=== PATIENT | male | born 1945 | race Two or more races ===

== ENCOUNTER 2020-05-28 09:25 | Day surgery (SDC) | payer MEDICARE ==
[~2020-05-28] VITALS: Ht 175.3 cm; Wt 124.3 kg
[2020-05-28] VITALS (13 sets, daily range): BP systolic 122–162; BP diastolic 81–103
[~2020-05-28 09:25] MED LIST: CHOL2000 PO; CYAN25003 PO; FLAX100032 PO; NORCO10T PO; OMEG1CAP54 PO; VITA400T10 PO; WALKERFR; [UNRECOGNIZED DRUG - SUPPLY]
[2020-05-28] MEDS ORDERED: atropine 0.1mg/ml 10ml syringe IV ONE (09:45)
[2020-05-28] MEDS ORDERED: MIDAZolam 1mg/ml 10ml vial IV ONE (09:45)
[2020-05-28] MEDS ORDERED: normal saline 1000ml 1,000 ML IV SCH (09:45)
[2020-05-28] MEDS ORDERED: fentaNYL/PF 50MCG/1 ML 2ML syringe IV ONE (09:45)
[2020-05-28] MEDS ORDERED: RIVA20TA PO (09:54)
[2020-05-28] MEDS ORDERED: FLEC100T35 PO (09:54)
[2020-05-28] MEDS ORDERED: FINA5TAB11 PO (09:55)
[2020-05-28] MEDS ORDERED: GLYC2TAB21 PO (09:58)
[2020-05-28] MEDS ORDERED: TEST200V10 IM (09:58)
[2020-05-28] MEDS ORDERED: TORS10TA17 PO (09:58)
[2020-05-28] MEDS ORDERED: SILO8CAP2 PO (09:58)
[2020-05-28] MEDS ORDERED: FINA5TAB3 PO (09:58)
[2020-05-28] MEDS ORDERED: IBUP-1985 PO (09:58)
[2020-05-28 10:29] LABS: BASOPHILS % (AUTO) 0.4 % (0-1); EOSINOPHILS % (AUTO) 0.2 % (0-6); LYMPHOCYTES # (AUTO) 0.8 X10'3 (1.1-4.8); LYMPHOCYTES % (AUTO) 10.3 % (21-51); MEAN CORPUSCULAR HEMOGLOBIN 33.4 PG (27.0-31.0); MEAN CORPUSCULAR HGB CONC 34.1 g/dL (33.0-36.5); MEAN PLATELET VOLUME 8.1 FL (7.4-10.4); MONOCYTES # (AUTO) 0.7 X10'3 (0-0.9); MONOCYTES % (AUTO) 9.1 % (2-12); NEUTROPHILS # (AUTO) 6.2 X10'3 (1.8-7.7); PLATELET COUNT 137 X10'3 (140-440); RED BLOOD COUNT 4.49 X10'6 (4.70-6.10); RED CELL DISTRIBUTION WIDTH 14.4 % (11.5-14.5); WHITE BLOOD COUNT 7.8 X10'3 (4.5-11.0)
[2020-05-28 10:31] LABS: ALBUMIN 3.4 G/DL (3.4-5.0); ANION GAP 4 (8-16); BLOOD UREA NITROGEN 30 MG/DL (7-18); BUN/CREATININE RATIO 22.6 (5.4-32.0); CALCIUM 8.7 MG/DL (8.5-10.1); CHLORIDE 106 MMOL/L (99-107); CREATININE 1.33 MG/DL (0.60-1.10); GLUCOSE 103 MG/DL (70-104); MAGNESIUM 1.9 MG/DL (1.5-2.4); POTASSIUM 3.8 MMOL/L (3.5-5.1); SODIUM 144 MMOL/L (135-145); TOTAL CARBON DIOXIDE 34.2 MMOL/L (24-32); eGFR 53 ML/MIN
== END 2020-05-28 13:50 | disposition home or self-care (01) ==
LOC: SSTAY O 09:25
PROVIDERS: ATTEND Internal Medicine Cardiovascular Disease
DX: I48.19 Other persistent atrial fibrillation (principal); I10 Essential (primary) hypertension; G47.33 Obstructive sleep apnea (adult) (pediatric); N40.0 Benign prostatic hyperplasia without lower urinary tract symptoms; E53.8 Deficiency of other specified B group vitamins; E66.01 Morbid (severe) obesity due to excess calories; Z68.41 Body mass index [BMI] 40.0-44.9, adult; M51.36 Other intervertebral disc degeneration, lumbar region; Z79.899 Other long term (current) drug therapy; Z96.653 Presence of artificial knee joint, bilateral; Z79.891 Long term (current) use of opiate analgesic; Z98.890 Other specified postprocedural states
CPT/HCPCS: 36415; 80048; 83735; 85025; 85610; 92960; 93005; J2250; J3010; J7030

== ENCOUNTER 2021-09-26 05:42 | Day surgery (SDC) | payer MEDICARE ==
[2021-09-24 16:06] LABS: BASOPHILS % (AUTO) 0.6 % (0-1); EOSINOPHILS # (AUTO) 0.1 X10'3 (0-0.9); EOSINOPHILS % (AUTO) 1.5 % (0-6); LYMPHOCYTES # (AUTO) 2.1 X10'3 (1.1-4.8); LYMPHOCYTES % (AUTO) 32.9 % (21-51); MEAN CORPUSCULAR HEMOGLOBIN 24.3 PG (27.0-31.0); MEAN CORPUSCULAR HGB CONC 33.1 g/dL (33.0-36.5); MEAN CORPUSCULAR VOLUME 73.5 FL (78-98); MEAN PLATELET VOLUME 8.6 FL (7.4-10.4); MONOCYTES # (AUTO) 0.6 X10'3 (0-0.9); MONOCYTES % (AUTO) 9.9 % (2-12); NEUTROPHILS # (AUTO) 3.5 X10'3 (1.8-7.7); NEUTROPHILS % (AUTO) 55.1 % (42-75); PRE OP HEMATOCRIT 37.6 % (42.0-52.0); PRE OP HEMOGLOBIN 12.4 g/dL (14.0-17.9); PRE OP PLATELET COUNT 187 X10'3 (140-440); RED BLOOD COUNT 5.11 X10'6 (4.70-6.10); RED CELL DISTRIBUTION WIDTH 18.4 % (11.5-14.5)
[2021-09-24 16:22] LABS: PRE OP INR 1.3 INR; PRE OP PROTIME 13.1 SECONDS (9.0-12.0)
[2021-09-24 16:34] LABS: ALBUMIN 3.7 G/DL (3.4-5.0); ALKALINE PHOSPHATASE 86 IU/L (46-116); BLOOD UREA NITROGEN 26 MG/DL (7-18); CALCIUM 8.9 MG/DL (8.5-10.1); CHLORIDE 103 MMOL/L (99-107); CREATININE 1.37 MG/DL (0.60-1.10); PRE OP ALT 26 U/L (30-65); PRE OP ANION GAP 10 (8-16); PRE OP AST 22 U/L (10-37); PRE OP BILIRUB, TOTAL 0.8 MG/DL (0.0-1.0); PRE OP GLUCOSE 115 MG/DL (70-104); PRE OP SODIUM 143 MMOL/L (135-145); TOTAL CARBON DIOXIDE 30.4 MMOL/L (24-32); TOTAL PROTEIN 7.3 G/DL (6.4-8.2); eGFR 51 ML/MIN
[2021-09-24 16:36] LABS: PRE OP POTASSIUM 3.3 MMOL/L (3.4-5.1)
[~2021-09-26] VITALS: Ht 177.8 cm; Wt 120.2 kg
[2021-09-26] VITALS (7 sets, daily range): BP systolic 102–149; BP diastolic 66–92
[~2021-09-26 05:42] MED LIST changes: +BISO1TAB99 PO; +BUME2TAB7 PO; +CYAN10007 IM; +DARI7.5T17 PO; +DOCUMENT DATE & TIME OF BETA-BLOCKER PO ONE; +DRON400T6 PO; +GABA-530 PO; +MAGN250T35 PO; +MAGN400T56 PO; +PANT40TA54 PO; +POTASSIUM PO; +RIVA20TA PO; +TEST200V33 IM; -WALKERFR; -[UNRECOGNIZED DRUG - SUPPLY]; +albuterol 2.5 MG/3 ML nebule NEB ONE; +ceFAZolin inj. 3,000 MG in normal saline 100ml IV soln 100 ML IV ONE; +famotidine 20mg tablet PO ONE; +ringers solution, lacted 1,000 ML IV SCH
[2021-09-26] MEDS ORDERED: BUPIVAcaine/PF 2.5mg/ml (0.25%) 10ml vial ONE (06:15)
[2021-09-26] MEDS ORDERED: LIDOcaine 0.5% (5mg/ml) 50ml vial ONE (07:08)
[2021-09-26] MEDS ORDERED: fentaNYL/PF 50MCG/1 ML 2ML syringe ONE (07:10)
[2021-09-26] MEDS ORDERED: MIDAZolam 1mg/ml 10ml vial ONE (07:12)
[2021-09-26] MEDS ORDERED: hydrALAZINE 20mg/ml inj. IV PRN (07:45)
[2021-09-26] MEDS ORDERED: fentaNYL/PF 50MCG/1 ML 2ML syringe IV PRN ×2 (07:45)
[2021-09-26] MEDS ORDERED: ondansetron/PF 4mg/2ml inj IV PRN (07:45)
[2021-09-26] MEDS ORDERED: morphine 4 MG/ML inj SYRINge IV PRN (07:45)
[2021-09-26] MEDS ORDERED: ringers solution, lacted 1,000 ML IV SCH (07:45)
[2021-09-26] MEDS ORDERED: morphine 2 MG/ML inj. syringe IV PRN (07:45)
[2021-09-26] MEDS ORDERED: labetalol 20mg/4ml (5mg/ml) syringe IV PRN (07:45)
--- NOTE | 2021-09-26 07:50 | NUR ---
Received from OR via BED, accompanied by Anesthesiologist and report given by Anesthesiologist. PATIENT WAKING UP, NO S/S OF PAIN, V/S WNL, SCD ON, 20G TO RUE, LEFT WRIST DRESSING CDI W/ SLING. ICE AND ELEVATED RUE.
[2021-09-26] MEDS ORDERED: HYDROcodone/acetaminophen 10/325mg tab PO PRN (08:05)
--- NOTE | 2021-09-26 08:30 | NUR ---
PATIENT A&OX4, DENIES PAIN, V/S WNL, SCD OFF, 20G TO RUE D/C, LEFT WRIST DRESSING CDI W/ SLING. ICE AND ELEVATED RUE. . I HAVE REVIEWED D/C INSTRUCTIONS WITH PATIENT and they have verbalized understanding patient d/c home with all belongings and family gave transport home.
== END 2021-09-26 08:30 | disposition home or self-care (01) ==
LOC: PAS 05:42
PROVIDERS: ATTEND Orthopaedic Surgery
DX: G56.02 Carpal tunnel syndrome, left upper limb (principal); M19.011 Primary osteoarthritis, right shoulder; M19.012 Primary osteoarthritis, left shoulder; I10 Essential (primary) hypertension; E66.9 Obesity, unspecified; Z68.38 Body mass index [BMI] 38.0-38.9, adult; G47.33 Obstructive sleep apnea (adult) (pediatric); I48.91 Unspecified atrial fibrillation; Z20.822 Contact with and (suspected) exposure to COVID-19; Z98.890 Other specified postprocedural states; Z79.82 Long term (current) use of aspirin
CPT/HCPCS: 36415; 64721; 80053; 85025; 85610; 85730; 87635; A6222; C9803; J0690; J2250; J3010; J3490; J7030; J7120; Z7506; Z7512; A4215; A6449; A7000

== ENCOUNTER 2023-11-16 09:29 | Outpatient (CLI) | payer MEDICARE ==
[~2023-11-16 09:29] MED LIST changes: -DOCUMENT DATE & TIME OF BETA-BLOCKER PO ONE; -albuterol 2.5 MG/3 ML nebule NEB ONE; -ceFAZolin inj. 3,000 MG in normal saline 100ml IV soln 100 ML IV ONE; -famotidine 20mg tablet PO ONE; -ringers solution, lacted 1,000 ML IV SCH
== END 2023-11-16 23:59 | disposition home or self-care (01) ==
LOC: RAD 09:29
PROVIDERS: ATTEND Nurse Practitioner Family
DX: I08.8 Other rheumatic multiple valve diseases (principal); R60.0 Localized edema; R06.09 Other forms of dyspnea
CPT/HCPCS: 93306

== ENCOUNTER 2025-04-15 06:19 | Emergency (ER) | payer MEDICARE ==
[~2025-04-15] VITALS: Ht 175.3 cm; Wt 121.2 kg
[2025-04-15 07:02] LABS: MEAN PLATELET VOLUME 8.2 FL (7.4-10.4); RED CELL DISTRIBUTION WIDTH 13.3 % (11.5-14.5)
--- NOTE | 2025-04-15 07:02 | Physician Documentation ---
History of Present Illness General Chief Complaint: Diarrhea Stated Complaint: WEAKNESS Time Seen by MD: 06:50 Primary Medical Doctor: KHAI PULIDO Mode of Arrival: POV History of Present Illness Initial Comments The patient is a 79-year-old male with a history of atrial fibrillation (takes Xarelto), chronic kidney disease, BPH (recently started on tamsulosin) and occasional diarrhea who presents today with more diarrhea over the past day. The diarrhea is non-bloody. It is liquidy and green according to his , who has been cleaning him up. He has not been worked up for this in the past. Medication Reconciliation Allergies: Coded Allergies: No Known Allergies (Unverified , 12/09/13) Scheduled Bisoprolol Fumarate/Hctz (Bisoprolol-Hctz 2.5-6.25 mg Tb), 1 TAB PO DAILY, (Reported) Cholecalciferol (Vitamin D3) (Vitamin D-3), 5,000 UNIT PO DAILY, (Reported) Cyanocobalamin (Vitamin B-12) (Vitamin B-12), 1 TAB PO DAILY, (Reported) Cyanocobalamin (Vitamin B-12) (Cyanocobalamin Injection), 200 MG IM Q2W, (Reported) Darifenacin Hydrobromide (Darifenacin ER), 1 TAB PO DAILY, (Reported) Dronedarone Hydrochloride (Multaq), 1 TAB PO BID, (Reported) Flaxseed Oil (Flaxseed), 1,400 MG PO DAILY, (Reported) Gabapentin (Gabapentin), 1 TAB PO DAILY, (Reported) Magnesium (Magnesium), 1 TAB PO DAILY, (Reported) Magnesium Oxide (Magnesium Oxide), 1 TAB PO DAILY, (Reported) [place]-3 Fatty Acids/Fish Oil (Fish Oil 1,000 Mg Capsule), 1,400 MG PO DAILY, (Reported) Pantoprazole Sodium (Pantoprazole Sodium), 1 TAB PO DAILY, (Reported) Rivaroxaban (Xarelto), 1 TAB PO HS, (Reported) Testosterone Cypionate (TESTOSTERONE CYPIONATE 200mg/ml 10ml vial), 1 ML IM Q2W, (Reported) Vitamin E Mixed (Vitamin E), 400 UNIT PO DAILY, (Reported) [Potassium], 99 MG PO DAILY, (Reported) Scheduled PRN Bumetanide (Bumetanide), 1 TAB PO DAILY PRN for swelling, (Reported) Hydrocodone Bit/Acetaminophen 10/325 MG* ([place] 10/325 MG*), 1 TAB PO Q8H PRN for moderate or severe pain, (Reported) Review of Systems ROS Constitutional: Denies chills, fatigue, fever, weight gain or weight loss. HEENT: Denies hearing loss, sinus pressure or visual changes. Respiratory: Denies cough, shortness of breath or wheezing. Cardiovascular: Denies chest pain, pain while walking (claudication), edema or palpitations. Gastrointestinal: Diarrhea, no nausea or vomiting Genitourinary: Denies painful urination (dysuria), excessive amount of urine (polyuria) or urinary frequency. Metabolic/Endocrine: Denies cold intolerance, heat intolerance, excessive thirst (polydipsia) or excessive hunger (polyphagia). Neurological: Denies dizziness, extremity numbness, extremity weakness, headaches, seizures or tremors. Psychiatric: Denies anxiety or depression. Integumentary: Denies breast discharge, breast lump, hives, mole change(s), rash or skin lesion. Musculoskeletal: Denies back pain, joint pain, joint swelling or neck pain. Hematologic: Denies easily bleeding, easily bruises, lymphedema or issues with blood clots. Immunologic: Denies food allergies or seasonal allergies. Physical Exam Physical Exam Vital Signs: Temperature: 98.0, Source: Oral, Heart Rate: 109, Respiratory Rate: 16, BP: 160/78, Pulse Oximetry: 95, Weight: 121.200 Oxygen Flow Rate: 0 Physical Exam Physical Exam Vitals and nursing note reviewed. Constitutional: General: Patient is awake, alert, oriented x 4 in no acute distress and well appearing. Speech is clear and lucid. Appearance: Normal appearance. Patient is not ill-appearing, toxic-appearing or diaphoretic. HENT: Head: Normocephalic and atraumatic. Mouth/Throat: Mouth: Mucous membranes are moist. Pharynx: Oropharynx is clear. Eyes: General: No scleral icterus. Extraocular Movements: Extraocular movements intact. Pupils: Pupils are equal, round, and reactive to light. Neck: Supple, no Kernig or Brudzinski sign. Cardiovascular: Rate and Rhythm: Normal rate and regular rhythm. Heart sounds: No murmur heard. Pulmonary: Effort: No respiratory distress. Breath sounds: No wheezing, rhonchi or rales. Abdominal: General: There is no distension. Palpations: There is no fluid wave, hepatomegaly or mass. Tenderness: There is no abdominal tenderness. There is no guarding. Musculoskeletal: General: No swelling or deformity. Skin: Coloration: Skin is not jaundiced. Findings: No erythema or rash. Neurological: Mental Status: Patient is alert. Progress Results/Orders Results/Orders Orders - NITHYA DUNCAN MD Occult Bld Stool (04/15/25 06:56) Cult Stool (Enteric Pathogens) (04/15/25 ) C Diff Toxin (04/15/25 06:56) Wrights Stain For Stool Wbcs (04/15/25 ) Completed Orders - NITHYA DUNCAN MD Cbc/Diff (04/15/25 06:27) BMP (04/15/25 06:27) Lipase (04/15/25 06:27) CMP (04/15/25 06:27) Procalcitonin (04/15/25 06:56) LA (04/15/25 06:56) MG (04/15/25 06:50) Ua W/Microscopic, Cult If Ind (04/15/25 07:00) Vital Signs 04/15/25 04/15/25 04/15/25 04/15/25 06:21 06:47 07:34 08:43 Temp 98.0 98.6 Pulse 109 111 113 Resp 16 16 16 16 B/P (MAP) 160/78 179/97 (124) 174/147 (156) Pulse Ox 95 96 97 O2 Flow Rate 0 0 Laboratory Tests Test 04/15/25 06:50 04/15/25 07:00 04/15/25 07:10 White Blood Count 7.5 Red Blood Count 5.25 Hemoglobin 16.4 Hematocrit 48.1 Mean Corpuscular Volume 91.7 Mean Corpuscular Hemoglobin 31.2 H Mean Corpuscular Hemoglobin Concent 34.0 Red Cell Distribution Width 13.3 Platelet Count 127 L Mean Platelet Volume 8.2 Neutrophils (%) (Auto) 81.1 H Lymphocytes (%) (Auto) 9.1 L Monocytes (%) (Auto) 8.6 Eosinophils (%) (Auto) 0.8 Basophils (%) (Auto) 0.4 Neutrophils # (Auto) 6.1 Lymphocytes # (Auto) 0.7 L Monocytes # (Auto) 0.6 Eosinophils # (Auto) 0.1 Basophils # (Auto) 0.0 CBC Comment Sodium Level 135 Potassium Level 3.7 Chloride Level 100 Carbon Dioxide Level 29.5 Anion Gap 6 L Blood Urea Nitrogen 23 H Creatinine 1.43 H Estimated GFR/1.73 m2 48 BUN/Creatinine Ratio 16.1 Glucose Level 107 H Calcium Level 8.7 Magnesium Level 1.6 Total Bilirubin 2.2 H Aspartate Amino Transf (AST/SGOT) 23 Alanine Aminotransferase (ALT/SGPT) 26 Alkaline Phosphatase 86 Total Protein 7.4 Albumin 3.8 Globulin 3.6 Albumin/Globulin Ratio 1.1 Lipase 24 Procalcitonin < 0.05 Chemistry Comments Urine Specimen Description Non-specified Urine Color Yellow Urine Clarity Clear Urine pH 5.5 Urine Specific [place] 1.025 Urine Protein 100 H Urine Glucose (UA) Negative Urine Ketones Negative Urine Occult Blood Small Urine Nitrite Negative Urine Bilirubin Negative Urine Urobilinogen 0.2 Urine Leukocyte Esterase Negative Urine RBC 10-20 Urine WBC 0-4 Urine Squamous Epithelial Cells Few Urine Bacteria None seen Urine Hyaline Casts 0-3 Urine Culture Indicated Not ind Volume Urine Centrifuged 10 ml Urine Comment Lactic Acid Level 1.0 Medical Decision Making Findings The patient does not have a leukocytosis. His chronic kidney disease is stable. His lactate level is normal. He is not passing blood. He does not wish to be admitted to the hospital. I am going to prescribe an antibiotic along with some limited Imodium. He has a follow-up appointment with his PCP next week. Departure Disposition: HOME / SELF CARE / HOMELESS Impression: Primary Impression: Diarrhea Additional Impression Text It is important to see your doctor or primary care provider. Emergency care may be incomplete without proper follow-up. Symptoms sometimes change or new symptoms might arise after you leave the emergency department. It is important that you call your doctor if you become worse in any way, or return to the emergency department. You are strongly urged to follow-up with your physician to assure complete and thorough care. Please call your doctor's office today, and informed them that you were seen in the emergency department, and that you need to be seen immediately for close follow-up. If you do not have a primary care doctor we encourage you to proactively seek a local physician for close follow-up. Consider local clinics, [facility], or local [facility]. Prior to discharge we spoke at length concerning symptoms that would merit reevaluation, but please return to the emergency department for any symptoms that are concerning to you, and we will be happy to continue your evaluation and treatment. Please note you can always return to the emergency department if you are having difficulty coordinating close follow-up. If medications were prescribed, you should fill them at your local pharmacy immediately and take only as prescribed. Bring your new medications to your doctors follow-up visit to discuss any changes that would be necessary. Please check [employer] for any results you did not receive in the Emergency Department: often we are unable to get all your tests back before you leave, and these tests need to be reviewed by your PCP and yourself. You can also call Medical Records if you are unable to access the internet to see [facility]. Return to the emergency department immediately for worsening chest pain, difficulty breathing, sweating, or other concerning emergent symptoms. Condition: Stable Referrals: NO PRIMARY CARE PROVIDER (PCP) Prescriptions Azithromycin (Zithromax) 250 Mg Tablet 2 TAB PO DAILY, #6 TAB 2 tablets daily for 3 days Prov: NITHYA DUNCAN MD 04/15/25 Education Educated: Patient Educated regarding: diagnosis, treatment, need for follow up Signature Scribe Signature: . Attestation: . NITHYA DUNCAN MD Apr 15, 2025 07:02
[2025-04-15 07:09] LABS: LEUKOCYTE ESTERASE ,URINE NEGATIVE (Neg); NITRITES, URINE NEGATIVE (Neg); OCCULT BLOOD,URINE SMALL (Neg)
[2025-04-15 07:11] LABS: UA COLLECTION TYPE NON-SPECIFIED
[2025-04-15 07:15] LABS: HYALINE CASTS 0-3 /LPF (NEGATIVE); SQUAMOUS EPITHELIAL CELL,UR FEW /LPF (FEW)
[2025-04-15 07:16] LABS: CREATININE 1.43 MG/DL (0.60-1.10); TOTAL CARBON DIOXIDE 29.5 MMOL/L (24-32); eCRCL 43 ML/MIN; eGFR 48 ML/MIN
[2025-04-15] MEDS ORDERED: AZIT-164 PO (09:42)
[2025-04-15 09:44] VITALS: BP 141/104; PULSE 109; RESP 16; TEMP 98.6; O2SAT 98
[2025-04-17] MEDS ORDERED: DULO60CA65 PO (08:55)
[2025-04-17] MEDS ORDERED: TAMS-55 PO (09:00)
[2025-04-17] MEDS ORDERED: MIRA50TA PO (09:01)
[2025-04-17] MEDS ORDERED: GABA-1555 PO (14:56)
[2025-04-17] MEDS ORDERED: MAGN250T29 PO (15:09)
== END 2025-04-15 09:50 | disposition home or self-care (01) ==
LOC: ER 06:20
DX: R19.7 Diarrhea, unspecified (principal); I48.91 Unspecified atrial fibrillation; N18.9 Chronic kidney disease, unspecified; Z79.01 Long term (current) use of anticoagulants
CPT/HCPCS: 36415; 80053; 81001; 83605; 83690; 83735; 84145; 85025; 99284